=== PATIENT | female | born 2000 | race African-American/Black ===

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

== ENCOUNTER 2018-03-15 17:03 | Outpatient (CLI) | payer OTHER ==
[2018-03-15 18:20] VITALS: BP 128/73; PULSE 91; RESP 17; TEMP 98.6
--- NOTE | 2018-04-04 08:37 | P.MSEPDOC ---
Presenting Problems - Arrival Data Date of Arrival on Unit: 03/15/18 Time of Arrival on Unit: 17:03 Mode of Transport: Ambulatory - Complaint OB-Reason for Admission/Chief Complaint: Rule Out PROM Comment: pt here with c/o possible rom around noon today, pt states that she has had an. increase in white discharge over the last week and felt that she had fluid trickling. down her leg today, denies gush of fluid, reports + fm, denies contractions, denies. complications with , pt is seeing dr reanna holt in [place], she was. here visiting and came into the nearest ob triage Medical History - Information : 2 Para: 1 Term: 1 : 0 Abortions: Spontaneous or Elective: 0 Number of Living Children: 1 - Gestational Age Gestational Age by CECY (wks/days): 29 Weeks and 0 Days - History Comment: pt recieving care with Dr Reanna Holt in [place] Review of Systems - Review of Systems Constitutional: No problems Breast: No problems ENT: No problems Cardiovascular: No problems Respiratory: No problems Gastrointestinal: No problems Genitourinary: No problems Musculoskeletal: No problems Neurological: No problems Skin: No problems Vital Signs - Temperature Temperature: 98.6 F Temperature Source: Oral - Pulse Right Brachial Pulse Rate: 91 Pulse Assessment Method: Automatic Cuff - Respirations Respiratory Rate: 17 Oxygen Delivery Method: Room Air - Blood Pressure Right Arm Blood Pressure: 128/73 Blood Pressure Mean: 91 Blood Pressure Source: Automatic Cuff Medical Screen Scoring (Pre) - Cervical Exam Dilation: 0 cm = 0 Membranes: Intact - Uterine Contractions Frequency: > 5 minutes apart = 1 Duration: > 40 seconds = 2 Intensity: N/A - Maternal Vital Signs Maternal Temperature: N/A Maternal Blood Pressure: N/A Signs of Preeclampsia: N/A Maternal Respirations: N/A - Pain Assessment Pain Scale Used: Numeric (1 - 10) Pain Intensity: 0 - Maternal Trauma Maternal Trauma: N/A - Assessment Baseline FHR: 135 Heart Rate - NICHD Category: Category I (Normal) = 0 NST: Reactive Position: N/A Station: N/A - Total Score Total Score (Pre): 3 - Level of Risk Level of Risk: Low (0-5) Physician Notification (Pre) - Physician Notified Physician Notified Date: 03/15/18 Physician Notified Time: 18:03 Physician/Practitioner Notifed:: Dr Morales Spoke With: Dr Morales New Order Received: Yes (dc home) - Notification Comment Comment: amnisure - Disposition - Disposition OB Disposition: Discharge to home, Written follow up instructions reviewed Discharge Date: 03/15/18 Discharge Time: 18:15 I agree with the RN Medical Screening Exam: Yes Risk & Benefit of care provided described in d/c instruction: Yes Diagnosis: FALSE LABOR BEFORE 37 COMPLETED WEEKS OF GEST, THIRD TRI
== END 2018-03-15 18:15 | disposition home or self-care (01) ==
LOC: FBPOP 17:03
PROVIDERS: ATTEND Obstetrics & Gynecology
DX: O47.03 False labor before 37 completed weeks of gestation, third trimester (principal); Z3A.29 29 weeks gestation of pregnancy
CPT/HCPCS: 84112; G0463; 99213

== ENCOUNTER 2018-03-18 02:28 | Outpatient (CLI) | payer OTHER ==
[2018-03-18 22:44] VITALS: BP 123/74; PULSE 76; RESP 16; TEMP 98.6
--- NOTE | 2018-03-21 08:48 | P.MSEPDOC ---
Presenting Problems - Arrival Data Date of Arrival on Unit: 03/18/18 Time of Arrival on Unit: 20:28 Mode of Transport: Wheelchair - Complaint OB-Reason for Admission/Chief Complaint: Rule Out PROM, Rule Out SROM, Pain Comment: cramping Medical History - Information : 2 Para: 1 Term: 1 : 0 Abortions: Spontaneous or Elective: 0 Number of Living Children: 1 - Gestational Age Gestational Age by CECY (wks/days): 29 Weeks and 3 Days - History Complications: Prior Review of Systems - Review of Systems Constitutional: No problems Breast: No problems ENT: No problems Cardiovascular: No problems Respiratory: No problems Gastrointestinal: No problems Genitourinary: No problems Musculoskeletal: No problems Neurological: No problems Skin: No problems Vital Signs - Temperature Temperature: 98.6 F Temperature Source: Temporal Artery Scan - Pulse Right Pulse Rate: 76 Pulse Assessment Method: Automatic Cuff - Respirations Respiratory Rate: 16 O2 Sat by Pulse Oximetry: 99 - Blood Pressure Right Arm Blood Pressure: 123/74 Blood Pressure Mean: 90 Blood Pressure Source: Automatic Cuff Medical Screen Scoring (Pre) - Cervical Exam Dilation: Exam Deferred Effacement: Exam Deferred Membranes: Intact - Uterine Contractions Frequency: > 5 minutes apart = 1 Duration: N/A Intensity: N/A - Maternal Vital Signs Maternal Temperature: N/A Maternal Blood Pressure: N/A Signs of Preeclampsia: N/A Maternal Respirations: N/A - Assessment Baseline FHR: 140 Heart Rate - NICHD Category: Category I (Normal) = 0 NST: Reactive Position: N/A - Total Score Total Score (Pre): 1 - Level of Risk Level of Risk: Low (0-5) Physician Notification (Pre) - Physician Notified Physician Notified Date: 03/18/18 Physician Notified Time: 21:23 Physician/Practitioner Notifed:: Dr Hawley - Notification Comment Comment: Reported on pts c/o possible SROM since and some cramping, was here with negative results. Reported on vitals, fhts reactive, pt c /o occasional cramping that isn't palpable, no bleeding or leaking noted. Reported on ffn and ua collected and negative amnisure. Orders to check cervix, if closed, pt may be d/c'd home with instructions to follow up with her own physician this week in [place]. No orders to send ffn or ua. Disposition - Disposition OB Disposition: Discharge to home Discharge Date: 03/18/18 Discharge Time: 21:44 I agree with the RN Medical Screening Exam: Yes Risk & Benefit of care provided described in d/c instruction: Yes Diagnosis: FALSE LABOR BEFORE 37 COMPLETED WEEKS OF GEST, THIRD TRI
== END 2018-03-18 21:45 | disposition home or self-care (01) ==
LOC: FBPOP 02:28
PROVIDERS: ATTEND Obstetrics & Gynecology
DX: O47.03 False labor before 37 completed weeks of gestation, third trimester (principal); Z3A.29 29 weeks gestation of pregnancy
CPT/HCPCS: 59025; 84112; G0463; 99213

== ENCOUNTER 2018-05-26 20:25 | Outpatient (CLI) | payer OTHER ==
[2018-05-26 21:00] VITALS: BP 132/78; PULSE 112; RESP 15; TEMP 98.4
--- NOTE | 2018-06-26 10:27 | P.MSEPDOC ---
Presenting Problems - Arrival Data Date of Arrival on Unit: 05/26/18 Time of Arrival on Unit: 20:25 Mode of Transport: Ambulatory - Complaint OB-Reason for Admission/Chief Complaint: Decreased Movement Medical History - Information : 2 Para: 1 Term: 1 : 0 Abortions: Spontaneous or Elective: 0 Number of Living Children: 1 - Gestational Age Gestational Age by CECY (wks/days): 39 Weeks and 2 Days - History Complications: Prior Review of Systems - Review of Systems Constitutional: No problems Breast: No problems ENT: No problems Cardiovascular: No problems Respiratory: No problems Gastrointestinal: No problems Genitourinary: No problems Musculoskeletal: No problems Neurological: No problems Skin: No problems Vital Signs - Temperature Temperature: 98.4 F Temperature Source: Temporal Artery Scan - Pulse Pulse Oximetery Pulse Rate: 112 Pulse Assessment Method: Pulse Oximetry - Respirations Respiratory Rate: 15 Oxygen Delivery Method: Room Air - Blood Pressure Right Arm Blood Pressure: 132/78 Blood Pressure Mean: 96 Blood Pressure Source: Automatic Cuff Medical Screen Scoring (Pre) - Cervical Exam Dilation: Exam Deferred Effacement: Exam Deferred Membranes: Intact - Uterine Contractions Frequency: > 5 minutes apart = 1 Duration: N/A Intensity: N/A - Maternal Vital Signs Maternal Temperature: N/A Maternal Blood Pressure: N/A Signs of Preeclampsia: N/A Maternal Respirations: N/A - Pain Assessment Pain Scale Used: Numeric (1 - 10) Pain Intensity: 0 Pain Management Goal: 2 - Maternal Trauma Maternal Trauma: N/A - Assessment Baseline FHR: 130 Heart Rate - NICHD Category: Category I (Normal) = 0 NST: Reactive Position: N/A Station: N/A - Total Score Total Score (Pre): 1 - Level of Risk Level of Risk: Low (0-5) Medical Screen Scoring (Post) - Cervical Exam Dilation: Exam Deferred Effacement: Exam Deferred Membranes: Intact - Uterine Contractions Frequency: > 5 minutes apart = 1 Duration: N/A Intensity: N/A - Maternal Vital Signs Maternal Temperature: N/A Maternal Blood Pressure: N/A Signs of Preeclampsia: N/A Maternal Respirations: N/A - Maternal Trauma Maternal Trauma: N/A - Assessment Heart Rate: 135 Heart Rate - NICHD Category: Category I (Normal) = 0 NST: Reactive Position: N/A Station: N/A - Total Score Total Score (Post): 1 - Post Treatment Level of Risk Post Treatment Level of Risk: Low (0-5) Physician Notification (Post) - Physician Notified Physician Notified Date: 05/26/18 Physician Notified Time: 21:04 Physician/Practitioner Notified:: Dr Jeronimo New Order Received: Yes Disposition - Disposition OB Disposition: Discharge to home Discharge Date: 05/26/18 Discharge Time: 21:16 I agree with the RN Medical Screening Exam: Yes Risk & Benefit of care provided described in d/c instruction: Yes Diagnosis: DECREASED MOVEMENTS, THIRD TRIMESTER, FETUS 1
== END 2018-05-26 21:18 | disposition home or self-care (01) ==
LOC: FBPOP 20:25
PROVIDERS: ATTEND Obstetrics & Gynecology
DX: O36.8131 Decreased fetal movements, third trimester, fetus 1 (principal); Z3A.39 39 weeks gestation of pregnancy
CPT/HCPCS: 59025; G0463; 99213

== ENCOUNTER 2018-05-29 10:19 | Inpatient (IN) | payer OTHER ==
[2018-05-28 14:26] VITALS: BMI 27.4
[2018-05-29] MEDS ORDERED: ceFAZolin IN SWFI 2 GM/20 ML SYRINGE IVP ONE (10:36)
[2018-05-29] MEDS ORDERED: CITRIC ACID-SODIUM CITRATE 15 ML CUP PO ONE (10:36)
[2018-05-29 10:46] LABS: Basophils % (A) 0 %; Eosinophils # (A) 0.1 k/uL (0-0.7); Eosinophils % (A) 1 %; HCT 36.2 % (34.0-46.0); HGB 11.9 gm/dL (11.4-16.0); Lymphocytes # (A) 1.1 k/uL (1.0-4.8); Lymphocytes % (A) 14 %; MCH 29.8 pg (25.0-35.0); MCHC 32.7 g/dL (31.0-37.0); MCV 91.2 fL (80.0-100.0); Mean Platelet Volume 7.3; Monocytes # (A) 0.9 k/uL (0-1.0); Monocytes % (A) 12 %; Neutrophils # (A) 5.6 k/uL (1.3-7.7); Neutrophils % (A) 71 %; Platelet Count 229 k/uL (150-450); RBC 3.97 m/uL (3.80-5.40); RDW 13.9 % (11.5-15.5); WBC 7.9 k/uL (4.0-11.0)
[2018-05-29] MEDS: LACTATED RINGERS 1,000 ML IV SCH ×3 (10:47→20:39)
[2018-05-29] MEDS ORDERED: ONDANSETRON 4 MG/2 ML VIAL ONE (12:29)
[2018-05-29] MEDS ORDERED: KETOROLAC 30 MG/ML 1 ML VIAL ONE (12:29)
[2018-05-29] MEDS ORDERED: MORPHINE SULFATE (PF) 0.3 MG/0.3 ML SYR ONE (12:29)
[2018-05-29] MEDS ORDERED: NALBUPHINE 10 MG/ML (1 ML AMP) ONE (12:29)
[2018-05-29] MEDS ORDERED: LACTATED RINGERS 1,000 ML BAG IV ONE (12:29)
[2018-05-29] MEDS ORDERED: OXYTOCIN 10 UNIT/ML 1 ML VIAL ONE (12:29)
[2018-05-29] MEDS ORDERED: PHENYLEPHRINE-0.9% NACL SYG 1 MG/10 ML SYRINGE ONE (12:29)
[2018-05-29] MEDS ORDERED: NALOXONE 0.4 MG/ML 1 ML VIAL IV PRN ×2 (13:14→19:19)
[2018-05-29] MEDS ORDERED: KETOROLAC 30 MG/ML 1 ML VIAL IVP PRN ×2 (13:14→19:19)
[2018-05-29] MEDS ORDERED: diphenhydrAMINE 50 MG/ML 1 ML VIAL IVP PRN ×3 (13:14→19:19)
[2018-05-29] MEDS ORDERED: ONDANSETRON 4 MG/2 ML VIAL IVP PRN ×2 (13:14→19:19)
[2018-05-29] MEDS ORDERED: MORPHINE SULFATE 2 MG/ML SYRINGE IVP PRN (13:14)
[2018-05-29] MEDS ORDERED: METOCLOPRAMIDE 5 MG/ML 2 ML VIAL IVP PRN (19:19)
[2018-05-29] MEDS ORDERED: ZOLPIDEM 5 MG TAB PO PRN (19:19)
[2018-05-29] MEDS ORDERED: diphenhydrAMINE 25 MG CAP PO PRN (19:19)
[2018-05-29] MEDS ORDERED: ACETAMINOPHEN TAB 325 MG TAB PO PRN (19:19)
[2018-05-29] MEDS ORDERED: diphenhydrAMINE 50 MG CAP PO PRN (19:19)
[2018-05-29] MEDS ORDERED: OXYTOCIN 20 UNITS/1000 ML NS 1,000 ML IV SCH (19:30)
[2018-05-29] MEDS: SENNOSIDES-DOCUSATE SODIUM 1 EACH TAB PO SCH (20:39)
[2018-05-30] MEDS: LACTATED RINGERS 1,000 ML IV SCH (04:19)
[2018-05-30] MEDS: SENNOSIDES-DOCUSATE SODIUM 1 EACH TAB PO SCH ×2 (08:03→21:03)
--- NOTE | 2018-05-30 08:48 | P.HPOB ---
History of Present Illness H&P Date: 05/29/18 Chief Complaint: Repeat low transverse 17-year-old presents at 39 weeks and 5 days for repeat low transverse C- section. Review of Systems All systems: negative Constitutional: Denies chills, Denies fever Eyes: denies blurred vision, denies pain Ears, nose, mouth and throat: Reports nasal congestion, Reports nasal discharge, Reports sore throat (Mild), Denies headache Cardiovascular: Denies chest pain, Denies shortness of breath Respiratory: Denies cough Gastrointestinal: Denies abdominal pain, Denies diarrhea, Denies nausea, Denies vomiting Genitourinary: Denies dysuria, Denies hematuria Musculoskeletal: Denies myalgias Integumentary: Denies pruritus, Denies rash Neurological: Denies numbness, Denies weakness Psychiatric: Denies anxiety, Denies depression Endocrine: Denies fatigue, Denies weight change Past Medical History Past Medical History: No Reported History Additional Past Medical History / Comment(s): Obstetric history: First was a vaginal delivery. This is her second . She's had care with me since 35 weeks gestation. She was a transfer of care. Blood type is O+, and was negative, rubella immune, has B-, HIV negative, RPR nonreactive, GBS negative. History of Any Multi-Drug Resistant Organisms: None Reported Past Surgical History: Section Past Anesthesia/Blood Transfusion Reactions: No Reported Reaction Additional Past Anesthesia/Blood Transfusion Reaction / Comment(s): no hx blood transfusion Past Psychological History: No Psychological Hx Reported Smoking Status: Never smoker Past Alcohol Use History: None Reported Past Drug Use History: Marijuana Additional Drug Use History / Comment(s): states "no marijuana use through " - Past Family History Mother Family Medical History: No Reported History Medications and Allergies Home Medications Medication Instructions Recorded Confirmed Type Pnv,Calcium 72/Iron/Folic Acid 1 each PO DAILY 03/15/18 05/29/18 History [ Plus Tablet] Allergies Allergy/AdvReac Type Severity Reaction Status Date / Time No Known Allergies Allergy Verified 05/28/18 14:19 Exam Osteopathic Statement: *. No significant issues noted on an osteopathic structural exam other than those noted in the History and Physical/Consult. Vital Signs Temp Pulse Resp BP Pulse Ox 05/30/18 08:00 99.3 F 104 H 16 130/61 05/30/18 06:00 16 05/30/18 04:00 100.2 F H 117 H 16 122/60 05/30/18 02:00 16 05/30/18 00:00 99.5 F 89 16 115/76 100 05/29/18 22:00 16 05/29/18 20:00 99.0 F 105 H 16 146/76 98 05/29/18 18:14 97 05/29/18 18:00 18 05/29/18 16:14 18 05/29/18 15:09 98.9 F 83 16 118/56 05/29/18 14:39 97 16 116/53 99 05/29/18 14:14 16 99 05/29/18 14:09 74 16 121/69 05/29/18 13:54 73 16 119/62 99 05/29/18 13:39 77 16 124/62 05/29/18 13:24 104 H 16 125/65 99 05/29/18 13:14 16 100 05/29/18 13:09 98 F 96 16 119/65 99 05/29/18 10:36 98.3 F 127 H 18 141/80 99 Intake and Output 05/29/18 05/30/18 05/30/18 22:59 06:59 14:59 Intake Total 300 Output Total 1200 800 Balance 300 -1200 -800 Intake: Intake, IV Titration 300 Amount Lactated Ringers 1,000 ml 300 @ 125 mls/hr IV .Q8H ISAIAS Rx#:[id number] Output: Urine 1200 800 Straight 800 Uretheral (Peterson) 400 Other: # Voids 1 Heart: Regular rate and rhythm Lungs: Clear to auscultation bilaterally Abdomen: Soft, nontender Extremities: Negative Homans sign Results Result Diagrams: 05/29/18 10:30 Assessment and Plan (1) Previous section Current Visit: Yes Status: Acute Code(s): Z98.891 - HISTORY OF UTERINE SCAR FROM PREVIOUS SURGERY SNOMED Code(s): 196021905 Plan: 1. Repeat low transverse
--- NOTE | 2018-05-30 08:50 | P.OP ---
Date of Procedure: 05/29/18 Preoperative Diagnosis: 1. at 39 weeks and 5 days 2. Previous section Postoperative Diagnosis: Same Procedure(s) Performed: Repeat low transverse Anesthesia: spinal Surgeon: Jacquelyn Morales [employer] Finisher #1: Raghav Quintanilla Estimated Blood Loss (ml): 750 IV fluids (ml): 700 Urine output (ml): 300 Pathology: none sent Condition: stable Disposition: floor Operative Findings: Viable female, Apgars 8, 9, weight 6 lbs. 12 oz. Normal uterus, tubes, ovaries. Description of Procedure: Patient was taken to the operating room where spinal anesthesia was found be adequate. She was prepped and draped in normal sterile fashion in dorsal supine position with a leftward tilt. Pfannenstiel skin incision was made the scalpel and carried through to the underlying layer of fascia with the scalpel. Fascia was incised in midline and carried bilaterally with the White scissors. The superior aspect of the fascial incision was grasped with Reta clamps elevated a nd the underlying rectus muscles dissected off with the White's. Attention was then turned to inferior aspect of same incision which in a similar fashion was grasped tented up and the underlying rectus muscles dissected off with the White's. The rectus muscles were the midline and the peritoneum was identified tented up and entered sharply with the scalpel. The incision was extended superiorly and inferiorly with good visualization of the bladder. The bladder blade was inserted and the vesicouterine peritoneum was incised the Metzenbaums then carried bilaterally and bladder flap created digitally. A low transverse incision was then made on the uterus with the scalpel. This was carried bilaterally and digital manner. 's head delivered atraumatically, nose and mouth bulb suctioned, cord clamped and cut, infant handed off to waiting nurses. Apgars 8,9, weight 6 lbs. 12oz. Placenta delivered manually, intact with three-vessel cord. The uterus is exteriorized and cleared of all clots and debris. The uterine incision was closed with 0 Vicryl in a running locked fashion. Second layer of the same sutures used in imbricating fashion to obtain excellent hemostasis. Both ovaries and tubes appeared normal. The uterus was placed back into the abdomen. The peritoneum was reapproximated using 2-0 Vicryl in a running fashion. The muscles were reapproximated using 2- 0 Vicryl in interrupted fashion. The fascia was reapproximated using 0 Vicryl in a running fashion. The subcutaneous tissues closed with 3-0 Vicryl running fashion. The skin was closed betty. Patient tolerated the procedure well, sponge and instrument counts were correct times 2 and she was taken to the recovery room in stable condition.
--- NOTE | 2018-05-30 08:52 | P.PNOBGPC ---
Subjective - Subjective Principal diagnosis: Status post repeat low transverse postop day #1 Interval history: Patient seen and examined. She denies nausea, vomiting, chest pain, shortness of breath or calf pain. Her pain is increasing and taking away her hunger. She did tolerate regular food this morning. She also discovered dose of Toradol. Her temperature did go up to 100.2 yesterday and is 99 today. She did come in with some nasal congestion, I did encourage her to increase her use of incentive spirometry. Patient reports: Reports appetite normal, Reports voiding normally, Reports pain well controlled, Reports ambulating normally : doing well Objective - Vital Signs Latest vital signs: Vital Signs Temp Pulse Resp BP Pulse Ox 05/30/18 08:00 99.3 F 104 H 16 130/61 05/30/18 06:00 16 05/30/18 04:00 100.2 F H 117 H 16 122/60 05/30/18 02:00 16 05/30/18 00:00 99.5 F 89 16 115/76 100 05/29/18 22:00 16 05/29/18 20:00 99.0 F 105 H 16 146/76 98 05/29/18 18:14 97 05/29/18 18:00 18 05/29/18 16:14 18 05/29/18 15:09 98.9 F 83 16 118/56 05/29/18 14:39 97 16 116/53 99 05/29/18 14:14 16 99 05/29/18 14:09 74 16 121/69 05/29/18 13:54 73 16 119/62 99 05/29/18 13:39 77 16 124/62 05/29/18 13:24 104 H 16 125/65 99 05/29/18 13:14 16 100 05/29/18 13:09 98 F 96 16 119/65 99 05/29/18 10:36 98.3 F 127 H 18 141/80 99 Intake and Output 05/29/18 05/30/18 05/30/18 22:59 06:59 14:59 Intake Total 300 Output Total 1200 800 Balance 300 -1200 -800 Intake: Intake, IV Titration 300 Amount Lactated Ringers 1,000 ml 300 @ 125 mls/hr IV .Q8H ISAIAS Rx#:[id number] Output: Urine 1200 800 Straight 800 Uretheral (Peterson) 400 Other: # Voids 1 - Exam Lungs: bilateral: normal Chest: Normal S1, Normal S2 Extremities: Present: normal Abdomen: Present: normal appearance, soft. Absent: distention, tenderness Incision: Present: normal, dry, intact Uterus: Present: normal, firm Assessment and Plan (1) Previous section Current Visit: Yes Status: Acute Code(s): Z98.891 - HISTORY OF UTERINE SCAR FROM PREVIOUS SURGERY SNOMED Code(s): 533539953 (2) Status post repeat low transverse section Current Visit: Yes Status: Acute Code(s): Z98.891 - HISTORY OF UTERINE SCAR FROM PREVIOUS SURGERY SNOMED Code(s): 099629824 Plan: 1. Increase ambulation 2. Increase use of assented spirometry 3. Monitor closely 4. Regular diet
[2018-05-30 08:54] LABS: Basophils % (A) 0 %; Eosinophils # (A) 0.1 k/uL (0-0.7); Eosinophils % (A) 1 %; HCT 28.5 % (34.0-46.0); Lymphocytes # (A) 0.8 k/uL (1.0-4.8); Lymphocytes % (A) 14 %; MCH 30.9 pg (25.0-35.0); MCHC 34.1 g/dL (31.0-37.0); MCV 90.8 fL (80.0-100.0); Mean Platelet Volume 7.4; Monocytes # (A) 0.5 k/uL (0-1.0); Monocytes % (A) 9 %; Neutrophils # (A) 4.1 k/uL (1.3-7.7); Neutrophils % (A) 74 %; Platelet Count 161 k/uL (150-450); RBC 3.14 m/uL (3.80-5.40); RDW 13.8 % (11.5-15.5); WBC 5.5 k/uL (4.0-11.0)
[2018-05-30 09:03] LABS: HGB 9.7 gm/dL (11.4-16.0)
--- NOTE | 2018-05-30 10:18 | P.PN ---
Progress Note - Text Progress Note Date: 05/30/18 patient is pod #1 s/p c/s under spinal anesthesia with duramorph. VAS = 0. No n/v or other side effects.
[2018-05-30] MEDS: IBUPROFEN 600 MG TAB PO PRN ×2 (13:29→21:02)
[2018-05-30] MEDS: HYDROcodone/APAP 7.5-325MG 1 EACH TAB PO PRN (15:11)
[2018-05-30] MEDS: OSELTAMIVIR 75 MG CAP PO SCH ×2 (15:18→21:00)
[2018-05-31] MEDS: HYDROcodone/APAP 7.5-325MG 1 EACH TAB PO PRN ×2 (00:07→06:46)
[2018-05-31] MEDS: LACTATED RINGERS 1,000 ML IV SCH ×2 (01:08→01:09)
[2018-05-31] MEDS: IBUPROFEN 600 MG TAB PO PRN ×2 (03:38→10:22)
[2018-05-31 08:18] VITALS: BP 116/69; PULSE 85; RESP 18; TEMP 97.4
[2018-05-31] MEDS: SENNOSIDES-DOCUSATE SODIUM 1 EACH TAB PO SCH (09:02)
[2018-05-31] MEDS: OSELTAMIVIR 75 MG CAP PO SCH (09:02)
== END 2018-05-31 15:30 | disposition home or self-care (01) | DRG 788 ==
LOC: 4FBP 10:19
PROVIDERS: ADMIT Obstetrics & Gynecology; ATTEND Obstetrics & Gynecology
PROC: 10D00Z1 Extraction of Products of Conception, Low, Open Approach (ICD-10-PCS; principal; 2018-05-29 12:43)
DX: O34.211 Maternal care for low transverse scar from previous cesarean delivery (principal); O99.52 Diseases of the respiratory system complicating childbirth; R09.81 Nasal congestion; Z37.0 Single live birth; Z3A.39 39 weeks gestation of pregnancy
CPT/HCPCS: 85025; 86850; 86900; 86901; 87502

== ENCOUNTER 2018-06-02 13:56 | Emergency (ER) | payer OTHER ==
[2018-06-02 14:03] VITALS: BP 134/59; PULSE 70; RESP 16; TEMP 99
--- NOTE | 2018-06-02 14:42 | ED ---
Recheck HPI - General Chief Complaint: Recheck/Abnormal Lab/Rx Stated Complaint: C section incision issues Time Seen by Provider: 06/02/18 14:38 Source: patient, RN notes reviewed, old records reviewed Mode of arrival: ambulatory Limitations: no limitations - History of Present Illness Initial Comments: This is a 88-year-old female the ER for evaluation. Tissues presented for evaluation regarding follow-up status post . Patient believes that scar is not healing appropriately. Patient has no drainage from the area, no pain from the area. No redness that she's noted. Patient has no other medical history takes no medications and has no other problems. No vaginal bleeding currently. No nausea vomiting or diarrhea. No fevers MD Complaint: wound re-check -: days(s) Initial Visit For: laceration (Suture/incision) Returns Today for: wound recheck Symptoms Since Prior Visit: no new symptoms Context: other (Patient just concerned over a period) Associated Symptoms: none - Related Data Home Medications Medication Instructions Recorded Confirmed Pnv,Calcium 72/Iron/Folic Acid 1 each PO DAILY 03/15/18 05/29/18 [ Plus Tablet] Previous Rx's Medication Instructions Recorded HYDROcodone/APAP 7.5-325MG [[place] 1 each PO Q6H PRN #30 tab 05/31/18 7.5-325] HYDROcodone/APAP 7.5-325MG [[place] 1 tab PO Q4H PRN 3 Days #18 tab 05/31/18 7.5-325] Ibuprofen [Motrin] 600 mg PO Q4H PRN #18 tab 05/31/18 Oseltamivir [Tamiflu] 75 mg PO Q12HR #10 cap 05/31/18 Allergies Allergy/AdvReac Type Severity Reaction Status Date / Time No Known Allergies Allergy Verified 06/02/18 14:04 Review of Systems ROS Statement: Those systems with pertinent positive or pertinent negative responses have been documented in the HPI. ROS Other: All systems not noted in ROS Statement are negative. Past Medical History Past Medical History: No Reported History Additional Past Medical History / Comment(s): Obstetric history: First was a vaginal delivery. This is her second . She's had care with me since 35 weeks gestation. She was a transfer of care. Blood type is O+, and was negative, rubella immune, has B-, HIV negative, RPR nonreactive, GBS negative. History of Any Multi-Drug Resistant Organisms: None Reported Past Surgical History: Section Past Anesthesia/Blood Transfusion Reactions: No Reported Reaction Additional Past Anesthesia/Blood Transfusion Reaction / Comment(s): no hx blood transfusion Past Psychological History: No Psychological Hx Reported Smoking Status: Never smoker Past Alcohol Use History: None Reported Past Drug Use History: Marijuana - Past Family History Mother Family Medical History: No Reported History General Exam - General Exam Comments Initial Comments: Incision is clean dry and intact and healing well Limitations: no limitations General appearance: alert, in no apparent distress Head exam: Present: atraumatic, normocephalic, normal inspection Eye exam: Present: normal appearance, PERRL, EOMI. Absent: scleral icterus, conjunctival injection, periorbital swelling ENT exam: Present: normal exam, mucous membranes moist Neck exam: Present: normal inspection. Absent: tenderness, meningismus, lymphadenopathy Respiratory exam: Present: normal lung sounds bilaterally. Absent: respiratory distress, wheezes, rales, rhonchi, stridor Cardiovascular Exam: Present: regular rate, normal rhythm, normal heart sounds. Absent: systolic murmur, diastolic murmur, rubs, gallop, clicks GI/Abdominal exam: Present: soft, normal bowel sounds. Absent: distended, tenderness, guarding, rebound, rigid Extremities exam: Present: normal inspection, full ROM, normal capillary refill. Absent: tenderness, pedal edema, joint swelling, calf tenderness Back exam: Present: normal inspection Neurological exam: Present: alert, oriented X3, CN II-XII intact Psychiatric exam: Present: normal affect, normal mood Skin exam: Present: warm, dry, intact, normal color. Absent: rash Course Vital Signs 06/02/18 13:58 Temperature 99.0 F Pulse Rate 70 Respiratory 16 Rate Blood Pressure 134/59 O2 Sat by Pulse 100 Oximetry - Reevaluation(s) Reevaluation #1: Medical record is reviewed, surgical history Medical Decision Making - Medical Decision Making 88-year-old female the ER for evaluation of recurrent visit for follow-up reg arding incision site. Incision is clean dry and intact with no evidence of dehiscence or infection. Patient given reassurance questions answered. Patient will follow-up with OB as directed Disposition Clinical Impression: Previous section, Normal exam, Postoperative follow-up Disposition: HOME SELF-CARE Condition: Good Instructions (If sedation given, give patient instructions): Normal Exam (ED) Is patient prescribed a controlled substance at d/c from ED?: No Referrals: None,Stated [Primary Care Provider] - 1-2 days
== END 2018-06-02 15:08 | disposition home or self-care (01) ==
LOC: EC 13:56
DX: Z48.01 Encounter for change or removal of surgical wound dressing (principal); Z98.891 History of uterine scar from previous surgery
CPT/HCPCS: 87502; 99283

== ENCOUNTER 2018-12-15 00:10 | Emergency (ER) | payer OTHER ==
[2018-12-15 00:31] VITALS: TEMP 100.2
[2018-12-15] MEDS ORDERED: DIPH,PERTUS(ACELL)TETVAC-LF 0.5 ML VIAL IM ONE (00:50)
[2018-12-15] MEDS ORDERED: LIDOCAINE 1% INJ 10MG/ML (20 ML MDV) SQ STA (00:50)
--- NOTE | 2018-12-15 01:34 | CT ---
EXAMINATION TYPE: CT facial bones wo con DATE OF EXAM: 12/15/2018 COMPARISON: None HISTORY: Trauma. Left orbital pain. CT DLP: mGycm Automated exposure control for dose reduction was used. TECHNIQUE: CT scan of the sinuses is performed without contrast, axial images are obtained, coronal r eformatted images are also reviewed. FINDINGS: The mandibular ring appears intact. Temporomandibular joints appear normal. There is normal aeration of the mastoid sinuses. Nasal bone appears intact. The maxilla is intact. There is no evide nce of a blowout fracture. Zygomatic arches appear normal. Orbital margins are intact. There is small laceration deformity on the superior left periorbital region. Frontal bone is intact. The globes are symmetric. There is no evidence of orbital mass. There is no sign of a foreign body. IMPRESSION: No orbital fracture. Small laceration deformity over the superior left orbit.
--- NOTE | 2018-12-15 01:39 | CT ---
EXAMINATION TYPE: CT brain connor owens DATE OF EXAM: 12/15/2018 COMPARISON: None HISTORY: fall CT DLP: 771.90 mGycm Automated exposure control for dose reduction was used. TECHNIQUE: CT scan of the head and cervical spine are performed without contrast. FINDINGS: Ventricles and sulci appear normal. There is no mass effect nor midline shift. There is n o sign of intracranial hemorrhage. The calvarium is intact. Cervical vertebra show some straightening. Disc spaces are normal. Facet joints appear normal. Skull base is intact. There is no sign of cervical spine fracture. IMPRESSION: Negative CT scan of the brain. Negative CT scan cervical spine. No fracture.
[2018-12-15] MEDS ORDERED: PROPARACAINE 0.5% OPHTH DROPS 15 ML BTL LEFT EYE STA (01:49)
[2018-12-15] MEDS ORDERED: ACETAMINOPHEN TAB 325 MG TAB PO STA (01:50)
[2018-12-15 02:28] VITALS: BP 128/74; PULSE 85; RESP 16
[2018-12-15] MEDS ORDERED: IBUPROFEN 600 MG STARTER PACK 4 TAB BTL PO STA (02:59)
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
== END 2018-12-15 03:11 | disposition home or self-care (01) ==
LOC: EC 00:10
DX: S01.81XA Laceration without foreign body of other part of head, initial encounter (principal); F17.200 Nicotine dependence, unspecified, uncomplicated; Z23 Encounter for immunization; X99.0XXA Assault by sharp glass, initial encounter; Y93.89 Activity, other specified
CPT/HCPCS: 72125; 70486; 70450; 90715; 99284; 12013; 90471; J2001